=== PATIENT | female | born 1960 ===

== ENCOUNTER 2021-01-11 09:04 | Outpatient (CLI) | payer OTHER ==
[~2021-01-11 09:04] MED LIST: CIPRO500 MG PO; CLONAZEPAM1 MG; COLACE100 MG PO; COZAAR25 MG; PLAVIX75 MG; SIDEROL TABLET1 EACH PO; WELLBUTRIN SR150 MG
== END 2021-01-11 09:19 | disposition home or self-care (01) ==
LOC: TOM 09:04
PROVIDERS: ATTEND Internal Medicine Gastroenterology
DX: Z12.11 Encounter for screening for malignant neoplasm of colon (principal); R63.4 Abnormal weight loss; Z80.0 Family history of malignant neoplasm of digestive organs